=== PATIENT | male | born 1995 | race Two or more races ===

== ENCOUNTER 2017-02-12 03:00 | Emergency (ER) | payer SELFPAY ==
[~2017-02-12] VITALS: Ht 190.5 cm; Wt 81.6 kg
[2017-02-12 03:00] VITALS: BP 141/97
[2017-02-12] MEDS ORDERED: Morphine Sulfate 4mg/ml Inj IVP ONE (03:15)
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
[2017-02-12] MEDS ORDERED: IBUPROFEN600 MG ORAL (05:19)
[2017-02-12 06:27] VITALS: BP 130/90
--- NOTE | 2017-02-12 11:39 | Diagnostic Imaging Report ---
Indication: Neck Pain Findings: 3 views of the cervical spine were obtained. There is no acute fracture identified. Alignment is normal. The open-mouth odontoid view shows an intact dens and good alignment of the lateral masses with respect to the body of C2. There is no soft tissue swelling. Impression: Negative cervical spine examination.
--- NOTE | 2017-02-12 11:39 | Diagnostic Imaging Report ---
Indication: Pain 3 views of the right knee were obtained. Findings: No acute fracture, malalignment, or joint effusion are identified. Joint space is relatively well-maintained. Impression: Negative for acute findings.
--- NOTE | 2017-02-12 11:40 | Diagnostic Imaging Report ---
Indication: Pain Comparison: None Findings: Two views of the right tibia and fibula were obtained. No acute fracture, malalignment, or periosteal reaction are identified. Soft tissues are unremarkable. Impression: Negative examination of the tibia and fibula
--- NOTE | 2017-02-12 11:40 | Diagnostic Imaging Report ---
Indication: Pain right ankle Comparison: None Findings: 3 views of the right ankle obtained. No acute fracture, malalignment, periostitis, or osteochondral defects are identified. Soft tissues are unremarkable. Impression: Negative examination
== END 2017-02-12 06:30 | disposition home or self-care (01) ==
LOC: EDBD 03:00 → EMR 03:30
DX: S80.11XA Contusion of right lower leg, initial encounter (principal); F10.920 Alcohol use, unspecified with intoxication, uncomplicated; V09.9XXA Pedestrian injured in unspecified transport accident, initial encounter; Y93.9 Activity, unspecified; Y92.410 Unspecified street and highway as the place of occurrence of the external cause
CPT/HCPCS: 72040; 73562; 73590; 73610; 96361; 96374; 99284; J2270